=== PATIENT | female | born 1995 | race Two or more races ===

== ENCOUNTER 2018-08-19 02:03 | Inpatient (IN) | payer BC ==
[~2018-08-19 02:03] MED LIST: Citric Acid/Sodium Citrate Solution 30 ML Cup PO ONE; Metoclopramide 10 MG/2 ML SDV IVPUSH ONE; Nalbuphine 20 MG/ML 1 ML Syringe IVPUSH PRN; Oxytocin/Lactated Ringers 10 UNIT/1,000 ML BAG IV SCH; Sodium Chloride 0.9% 10 ML Syringe FLUSH PRN
[2018-08-19] MEDS ORDERED: Metoclopramide 10 MG/2 ML SDV ONE (06:33)
[2018-08-19] MEDS ORDERED: Citric Acid/Sodium Citrate Solution 30 ML Cup ONE (06:33)
[2018-08-19] MEDS: Lactated Ringers 1,000 ML IV SCH ×2 (06:52→07:14)
--- NOTE | 2018-08-19 07:09 | PCM.OPNOTE ---
- General Post-Op/Procedure Note Date of Surgery/Procedure: 08/19/18 Operative Procedure(s): Repeat low trasverse Findings: Moderate amount of adhesive disease between the rectus and the facia. Minimal adhesive disease between the uterus and bladder. Baby girl in a vertex presentation with APGARS of 8 & 9. Weight of 7 lbs 8 oz. Pre Op Diagnosis: Hx of . 39 wks gestation Post-Op Diagnosis: Same Anesthesia Technique: Spinal Primary Surgeon: Mildred Benz Secondary Surgeon: Azucena Cameron Anesthesia Provider: Elina Colbert Reason Day Care Home Provider Was Necessary: BMI of patient. Speed/safety of procedure Pathology: cord blood collected. Placenta discarded. Fluid Replacement, Intraop: 2,000 Output, Urine Amount: 150 EBL in mLs: 1,100 Complications: None Condition: Good Free Text/Narrative:: The risks, benefits, indications, potential complications, and alternatives were explained to the patient and informed consent obtained. After induction of anesthesia, the patient was placed in a supine position and then draped and prepped in the usual sterile manner. A Pfannenstiel incision was made and carried down through the subcutaneous tissue to the fascia. Fascial incision was made and extended transversely. The fascia was from the underlying rectus tissue superiorly and inferiorly. The peritoneum was identified and entered. Peritoneal incision was extended longitudinally. The utero-vesical peritoneal reflection was incised transversely and the bladder flap was bluntly freed from the lower uterine segment. A low transverse uterine incision was made sharply with a scalpel and extended bluntly in a cephalocaudad direction. A baby girl was delivered from a vertex presentation with APGARS as above. After the umbilical cord was clamped and cut cord blood was obtained for evaluation. The placenta was removed intact and appeared normal. The uterus was exteriorized and cleared of clots. The uterine outline, tubes and ovaries appeared normal. The uterine incision was closed with running locked sutures of 0 Vicryl. Hemostasis was obtained with a second imbricating layer of 0 vicryl. The uterus was then placed back into the abdomen. The infracolic gutters were cleared of blood clots. The fascia was then reapproximated with running sutures of 0 Vicryl. The sucutaneous tissue was irrigated with sterile warm normal saline, hemostasis obtained with cautery. This layer was also closed with a running 0 vicryl. The skin was reapproximated with running Subcuticular 4-0 monocryl sutures. Instrument, sponge, and needle counts were correct prior the abdominal closure and at the conclusion of the case.
[2018-08-19] MEDS ORDERED: Morphine PF 10 MG/10 ML SDV ONE (07:30)
[2018-08-19] MEDS ORDERED: ceFAZolin 1 GM Vial ONE (07:30)
[2018-08-19] MEDS ORDERED: Phenylephrine 1% 10 MG/ML SDV ONE (07:30)
[2018-08-19] MEDS ORDERED: Oxytocin 10 Units/1 ML SDV ONE (07:31)
[2018-08-19] MEDS ORDERED: Ketorolac 30 MG/ML SDV ONE (07:31)
--- NOTE | 2018-08-19 07:32 | PCM.PREANE ---
Preanesthetic Assessment - Anesthesia/Transfusion/Family Hx Anesthesia History: Prior Anesthesia Without Reaction Family History of Anesthesia Reaction: No Transfusion History: No Prior Transfusion(s) - Review of Systems General: No Symptoms Pulmonary: No Symptoms Cardiovascular: No Symptoms Gastrointestinal: No Symptoms Neurological: No Symptoms Other: Reports: None - Physical Assessment NPO Status Date: 08/18/18 NPO Status Time: 21:00 Pulse: 94 O2 Sat by Pulse Oximetry: 99 Respiratory Rate: 17 Blood Pressure: 117/73 Temperature: 36.3 C Vital Signs: Last Vital Signs Temp 36.3 C 08/19/18 05:30 Pulse 94 08/19/18 05:30 Resp 17 08/19/18 05:30 BP 117/73 08/19/18 05:30 Pulse Ox 99 08/19/18 05:30 Height: 1.52 m Weight: 80.739 kg ASA Class: 2 Mental Status: Alert & Oriented x3 Airway Class: Mallampati = 3 Dentition: Reports: Normal Dentition Thyro-Mental Finger Breadths: 3 Mouth Opening Finger Breadths: 3 ROM/Head Extension: Full Lungs: Clear to Auscultation, Normal Respiratory Effort Cardiovascular: Regular Rate, Regular Rhythm - Lab Values: Laboratory Last Values WBC 12.22 K/mm3 (3.98-10.04) H 08/19/18 05:50 RBC 3.92 M/mm3 (3.98-5.22) L 08/19/18 05:50 Hgb 11.4 gm/L (11.2-15.7) 08/19/18 05:50 Hct 34.8 % (34.1-44.9) 08/19/18 05:50 MCV 88.8 fl (79.4-94.8) 08/19/18 05:50 MCH 29.1 pg (25.6-32.2) 08/19/18 05:50 MCHC 32.8 g/dl (32.2-35.5) 08/19/18 05:50 RDW Std Deviation 41.8 fL (36.4-46.3) 08/19/18 05:50 Plt Count 243 K/mm3 (182-369) 08/19/18 05:50 MPV 11.6 fl (9.4-12.3) 08/19/18 05:50 - Allergies Allergies/Adverse Reactions: Allergies Allergy/AdvReac Type Severity Reaction Status Date / Time No Known Allergies Allergy Verified 08/19/18 00:24 - Acknowledgements Anesthesia Type Planned: Spinal Pt an Appropriate Candidate for the Planned Anesthesia: Yes Alternatives and Risks of Anesthesia Discussed w Pt/Guardian: Yes Pt/Guardian Understands and Agrees with Anesthesia Plan: Yes PreAnesthesia Questionnaire - Past Health History Medical/Surgical History: Denies Medical/Surgical History HEENT History: Reports: None Cardiovascular History: Reports: Hypertension (HTN with last pt denies with this ) Respiratory History: Reports: None Gastrointestinal History: Reports: None Genitourinary History: Reports: None 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 (Approximate): Other (See Below) (repeat , 39 weeks) Other OB/BYN History: primary Musculoskeletal History: Reports: None Neurological History: Reports: None Psychiatric History: Reports: None Endocrine/Metabolic History: Reports: None - Past Surgical History GI Surgical History: Reports: Appendectomy - SUBSTANCE USE Smoking Status *Q: Former Smoker Tobacco Use Within Last Twelve Months: No Second Hand Smoke Exposure: No Recreational Drug Use History: No - HOME MEDS Home Medications: Home Meds Aspirin [Halfprin] 81 mg PO DAILY 08/19/18 [History] Ferrous Sulfate [Iron] 325 mg PO DAILY 08/19/18 [History] Pnv No.95/Ferrous Fum/Folic AC [ Caplet] 1 each PO DAILY 08/19/18 [ History] - CURRENT (IN HOUSE) MEDS Current Meds: Current Medications Lactated Ringer's (Ringers, Lactated) 1,000 mls @ 125 mls/hr IV ASDIRECTED ALLISON Last Admin: 08/19/18 07:14 Dose: 125 mls/hr Oxytocin/Lactated Ringer's (Pitocin In Lr 10 Units/1,000 Ml) 10 unit in 1,000 mls @ 100 mls/hr IV ASDIRECTED ALLISON; Protocol Nalbuphine HCl (Nubain) 10 mg IVPUSH Q2H PRN PRN Reason: pain Sodium Chloride (Saline Flush) 10 ml FLUSH ASDIRECTED PRN PRN Reason: Keep Vein Open Discontinued Medications Citric Acid/Sodium Citrate (Bicitra Solution) 30 ml PO ONETIME ONE Stop: 08/19/18 01:51 Last Admin: 08/19/18 06:52 Dose: 30 ml Citric Acid/Sodium Citrate (Bicitra Solution) Confirm Administered Dose 30 ml .ROUTE .STK-MED ONE Stop: 08/19/18 06:34 Metoclopramide HCl (Reglan) 10 mg IVPUSH ONETIME ONE Stop: 08/19/18 01:51 Last Admin: 08/19/18 06:52 Dose: 10 mg Metoclopramide HCl (Reglan) Confirm Administered Dose 10 mg .ROUTE .STK-MED ONE Stop: 08/19/18 06:34
[2018-08-19] MEDS ORDERED: Lactated Ringers 1,000 ML ONE ×2 (08:23→08:29)
[2018-08-19] MEDS ORDERED: Ondansetron 4 MG/2 ML SDV ONE (08:25)
[2018-08-19] MEDS ORDERED: diphenhydrAMINE 50 MG/ML SDV IVPUSH PRN ×2 (08:38→10:30)
[2018-08-19] MEDS ORDERED: Meperidine 50 MG/ML Vial IVPUSH PRN (08:38)
[2018-08-19] MEDS ORDERED: ePHEDrine 50 MG/ML SDV IVPUSH PRN (08:38)
[2018-08-19] MEDS ORDERED: Ondansetron 4 MG/2 ML SDV IVPUSH PRN (08:38)
[2018-08-19] MEDS ORDERED: fentaNYL 100 MCG/2 ML SDV IVPUSH PRN (08:38)
--- NOTE | 2018-08-19 08:55 | PCM.POSTAN ---
POST ANESTHESIA ASSESSMENT - MENTAL STATUS Mental Status: Alert, Oriented - VITAL SIGNS Pulse Rate: 70 SaO2: 97 Resp Rate: 14 Blood Pressure: 106/51 Temperature: 97.6 C - RESPIRATORY Respiratory Status: Respiratory Rate WNL, Airway Patent, O2 Saturation Stable - CARDIOVASCULAR CV Status: Pulse Rate WNL, Blood Pressure Stable - GASTROINTESTINAL GI Status: No Symptoms - PAIN Pain Score: 0 - POST OP HYDRATION Hydration Status: Adequate & Stable
[2018-08-19] MEDS ORDERED: Docusate Sodium 100 MG Cap PO PRN (10:30)
[2018-08-19] MEDS ORDERED: Ondansetron 4 MG/2 ML SDV IV PRN (10:30)
[2018-08-19] MEDS ORDERED: Lanolin 100% Cream 7 GM Tube TOP PRN (10:30)
--- NOTE | 2018-08-19 10:34 | PCM48HPAN ---
Post Anesthesia Note - EVALUATION WITHIN 48HRS OF ANESTHETIC Vital Signs in Normal Range: Yes Patient Participated in Evaluation: Yes Respiratory Function Stable: Yes Airway Patent: Yes Cardiovascular Function Stable: Yes Hydration Status Stable: Yes Pain Control Satisfactory: Yes Nausea and Vomiting Control Satisfactory: Yes Mental Status Recovered: Yes
[2018-08-19] MEDS: Dextrose 5%-Lactated Ringers 1,000 ML IV SCH ×2 (12:51→18:05)
[2018-08-19] MEDS: Ketorolac 30 MG/ML SDV IVPUSH SCH ×2 (14:34→20:21)
[2018-08-19] MEDS ORDERED: Scopolamine 1.5 MG Transdermal Patch TRDERM PRN (17:07)
[2018-08-20] MEDS: Ketorolac 30 MG/ML SDV IVPUSH SCH (02:29)
--- NOTE | 2018-08-20 04:34 | PCM.PNPP ---
- General Info Date of Service: 08/20/18 Functional Status: Reports: Pain Controlled, Tolerating Diet, Ambulating - Review of Systems General: Reports: No Symptoms Pulmonary: Reports: No Symptoms Cardiovascular: Reports: No Symptoms Gastrointestinal: Reports: Abdominal Pain (managed with medications ) Genitourinary: Reports: No Symptoms Musculoskeletal: Reports: No Symptoms - Patient Data Vital Signs - Most Recent: Last Vital Signs Temp 36.7 C 08/19/18 20:30 Pulse 63 08/20/18 02:37 Resp 16 08/20/18 03:36 BP 95/42 L 08/20/18 02:37 Pulse Ox 98 08/20/18 03:36 Weight - Most Recent: 80.739 kg I&O - Last 24 Hours: Intake & Output 08/19/18 08/19/18 08/20/18 14:59 22:59 06:59 Intake Total 1820 3000 1000 Output Total 395 860 275 Balance 1425 2140 725 Lab Results - Last 24 Hours: Laboratory Results - last 24 hr 08/19/18 08/19/18 Range/Units 05:50 05:50 WBC 12.22 H (3.98-10.04) K/mm3 RBC 3.92 L (3.98-5.22) M/mm3 Hgb 11.4 (11.2-15.7) gm/L Hct 34.8 (34.1-44.9) % MCV 88.8 (79.4-94.8) fl MCH 29.1 (25.6-32.2) pg MCHC 32.8 (32.2-35.5) g/dl RDW Std Deviation 41.8 (36.4-46.3) fL Plt Count 243 (182-369) K/mm3 MPV 11.6 (9.4-12.3) fl Blood Type O POSITIVE Gel Antibody Screen Negative Med Orders - Current: Current Medications Diphenhydramine HCl (Benadryl) 25 mg IVPUSH Q6H PRN PRN Reason: pruritis Diphenhydramine HCl (Benadryl) 25 mg IVPUSH Q6H PRN PRN Reason: Itching or Nausea Docusate Sodium (Colace) 100 mg PO Q12H PRN PRN Reason: Constipation Emollient Ointment (Lansinoh Hpa) 0 gm TOP ASDIRECTED PRN PRN Reason: Sore Nipples Ephedrine Sulfate (Ephedrine Sulfate) 5 mg IVPUSH ASDIRECTED PRN PRN Reason: Hypotension Fentanyl (Sublimaze) 50 mcg IVPUSH Q5M PRN PRN Reason: Pain Ibuprofen (Motrin) 600 mg PO Q6H PRN PRN Reason: mild pain or fever Meperidine HCl (Meperidine) 12.5 mg IVPUSH ASDIRECTED PRN PRN Reason: Shivering Ondansetron HCl (Zofran) 4 mg IVPUSH ONETIME PRN PRN Reason: Nausea/Vomiting Ondansetron HCl (Zofran) 4 mg IV Q8H PRN PRN Reason: Nausea/Vomiting Last Admin: 08/19/18 13:08 Dose: 4 mg Oxycodone/Acetaminophen (Percocet 325-5 Mg) 2 tab PO Q4H PRN PRN Reason: Pain (moderate 4-6) Scopolamine (Transderm-Scop) 1.5 mg TRDERM Q72H PRN PRN Reason: Vomiting Last Admin: 08/19/18 17:41 Dose: 1.5 mg Discontinued Medications Cefazolin Sodium (Ancef) Confirm Administered Dose 2 gm .ROUTE .STK-MED ONE Stop: 08/19/18 07:31 Citric Acid/Sodium Citrate (Bicitra Solution) 30 ml PO ONETIME ONE Stop: 08/19/18 01:51 Last Admin: 08/19/18 06:52 Dose: 30 ml Citric Acid/Sodium Citrate (Bicitra Solution) Confirm Administered Dose 30 ml .ROUTE .STK-MED ONE Stop: 08/19/18 06:34 Last Admin: 08/19/18 11:01 Dose: Not Given Lactated Ringer's (Ringers, Lactated) 1,000 mls @ 125 mls/hr IV ASDIRECTED ALLISON Last Admin: 08/19/18 07:14 Dose: 125 mls/hr Oxytocin/Lactated Ringer's (Pitocin In Lr 10 Units/1,000 Ml) 10 unit in 1,000 mls @ 100 mls/hr IV ASDIRECTED ALLISON; Protocol Lidocaine HCl (Xylocaine-Mpf 1%) Confirm Administered Dose 5 mls @ as directed .ROUTE .STK-MED ONE Stop: 08/19/18 07:32 Lactated Ringer's (Ringers, Lactated) Confirm Administered Dose 1,000 mls @ as directed .ROUTE .STK-MED ONE Stop: 08/19/18 08:24 Lactated Ringer's (Ringers, Lactated) Confirm Administered Dose 1,000 mls @ as directed .ROUTE .STK-MED ONE Stop: 08/19/18 08:30 Dextrose/Lactated Ringer's (Dextrose 5%-Lactated Ringers) 1,000 mls @ 125 mls/ hr IV ASDIRECTED ALLISON Stop: 08/19/18 18:29 Last Admin: 08/19/18 18:05 Dose: 125 mls/hr Ketorolac Tromethamine (Toradol) Confirm Administered Dose 30 mg .ROUTE .STK- MED ONE Stop: 08/19/18 07:32 Ketorolac Tromethamine (Toradol) 30 mg IVPUSH Q6H [facility] Stop: 08/20/18 02:31 Last Admin: 08/20/18 02:29 Dose: 30 mg Metoclopramide HCl (Reglan) 10 mg IVPUSH ONETIME ONE Stop: 08/19/18 01:51 Last Admin: 08/19/18 06:52 Dose: 10 mg Metoclopramide HCl (Reglan) Confirm Administered Dose 10 mg .ROUTE .STK-MED ONE Stop: 08/19/18 06:34 Last Admin: 08/19/18 11:01 Dose: Not Given Morphine Sulfate (Duramorph Pf) Confirm Administered Dose 10 mg .ROUTE .STK-MED ONE Stop: 08/19/18 07:31 Nalbuphine HCl (Nubain) 10 mg IVPUSH Q2H PRN PRN Reason: pain Ondansetron HCl (Zofran) Confirm Administered Dose 4 mg .ROUTE .STK-MED ONE Stop: 08/19/18 08:26 Oxytocin (Pitocin) Confirm Administered Dose 10 unit .ROUTE .STK-MED ONE Stop: 08/19/18 07:32 Phenylephrine HCl (Jaren-Synephrine) Confirm Administered Dose 10 mg .ROUTE .STK- MED ONE Stop: 08/19/18 07:31 Sodium Chloride (Saline Flush) 10 ml FLUSH ASDIRECTED PRN PRN Reason: Keep Vein Open - Interaction Disposition, : [place] in Room with Family Interaction: Holding Feeding: Attempted ; Nursed Fair/Poor Support Person: Significant Other - Recovery Exam Fundal Tone: Firm Fundal Level: At Umbilicus Fundal Placement: Midline Lochia Amount: Small, Moderate Lochia Color: Rubra/Red Perineum Description: Intact, Minimal Bruising/Swelling Bladder Status: Indwelling Catheter in Place Urinary Elimination: Indwelling Catheter - Exam General: Alert, Oriented, Cooperative Lungs: Clear to Auscultation, Normal Respiratory Effort Cardiovascular: Regular Rate, Regular Rhythm GI/Abdominal Exam: Soft, Tender (appropriate post op) Extremities: Normal Inspection Skin: Warm, Dry, Intact Wound/Incisions: Dressing Dry and Intact (changed last night as slightly saturated ) - Problem List & Annotations (1) 39 weeks gestation of SNOMED Code(s): 05736952 Code(s): Z3A.39 - 39 WEEKS GESTATION OF Status: Acute Current Visit: Yes (2) S/P repeat low transverse SNOMED Code(s): 824260087, 67537993, 409433083, 247859847, 474706061 Code(s): Z98.891 - HISTORY OF UTERINE SCAR FROM PREVIOUS SURGERY Status: Acute Current Visit: Yes - Problem List Review Problem List Initiated/Reviewed/Updated: Yes - My Orders Last 24 Hours: My Active Orders 08/19/18 10:30 Activity as Tolerated [RC] .Routine Antiembolic Devices [RC] PER UNIT ROUTINE Communication Order [RC] PER UNIT ROUTINE Intake and Output [RC] Q4HR Notify Provider Intake and Out [RC] ASDIRECTED RT Incentive Spirometry [RC] Q2HWA Acetaminophen/oxyCODONE [Percocet 325-5 MG] 2 tab PO Q4H PRN Docusate Sodium [Colace] 100 mg PO Q12H PRN Lanolin [Lansinoh HPA] See Dose Instructions TOP ASDIRECTED PRN Ondansetron [Zofran] 4 mg IV Q8H PRN diphenhydrAMINE [Benadryl] 25 mg IVPUSH Q6H PRN Assess Lochia [WOMSER] Per Unit Routine Assess Uterine Involution [WOMSER] Per Unit Routine Breast Pump [WOMSER] Per Unit Routine Heat Therapy [OM.PC] Per Unit Routine Peripheral IV Discontinue [OM.PC] Routine Sequential Compression Device [OM.PC] Per Unit Routine 08/19/18 17:07 Scopolamine [Transderm-Scop] 1.5 mg TRDERM Q72H PRN 08/19/18 Breakfast Regular Diet [DIET] 08/20/18 05:11 CBC W/O DIFF,HEMOGRAM [HEME] AM 08/20/18 08:30 Ibuprofen [Motrin] 600 mg PO Q6H PRN 08/20/18 08:52 Urinary Catheter Removal [RC] Per Unit Routine - Assessment Assessment:: 23 y/o G2 now P2002 POD#1 from [facility] at 39 0/7 wks - Plan Plan:: * Routine cares * Encourage breast feeding * CBC today with as expected drop, continue PNV on discharge * Discharge home in 1-2 days
[2018-08-20] MEDS: Acetaminophen/oxyCODONE 325-5 MG Tab PO PRN ×3 (06:25→18:37)
[2018-08-20] MEDS: Ibuprofen 600 MG Tab PO PRN (12:06)
[2018-08-21] MEDS: Ibuprofen 600 MG Tab PO PRN (00:09)
[2018-08-21] MEDS: Acetaminophen/oxyCODONE 325-5 MG Tab PO PRN ×2 (00:10→09:44)
--- NOTE | 2018-08-21 07:16 | PCM.PNPP ---
- General Info Date of Service: 08/21/18 - Patient Data Vital Signs - Most Recent: Last Vital Signs Temp 36.8 C 08/21/18 05:07 Pulse 66 08/21/18 05:07 Resp 16 08/21/18 05:07 BP 95/54 L 08/21/18 05:07 Pulse Ox 98 08/21/18 05:07 Weight - Most Recent: 80.739 kg I&O - Last 24 Hours: Intake & Output 08/20/18 08/21/18 08/21/18 22:59 06:59 14:59 Output Total 300 1200 Balance -300 -1200 Lab Results - Last 24 Hours: Laboratory Results - last 24 hr 08/20/18 Range/Units 05:55 WBC 13.26 H (3.98-10.04) K/mm3 RBC 3.05 L (3.98-5.22) M/mm3 Hgb 8.7 L (11.2-15.7) gm/L Hct 27.8 L (34.1-44.9) % MCV 91.1 (79.4-94.8) fl MCH 28.5 (25.6-32.2) pg MCHC 31.3 L (32.2-35.5) g/dl RDW Std Deviation 41.9 (36.4-46.3) fL Plt Count 227 (182-369) K/mm3 MPV 12.3 (9.4-12.3) fl Med Orders - Current: Current Medications Diphenhydramine HCl (Benadryl) 25 mg IVPUSH Q6H PRN PRN Reason: pruritis Diphenhydramine HCl (Benadryl) 25 mg IVPUSH Q6H PRN PRN Reason: Itching or Nausea Docusate Sodium (Colace) 100 mg PO Q12H PRN PRN Reason: Constipation Emollient Ointment (Lansinoh Hpa) 0 gm TOP ASDIRECTED PRN PRN Reason: Sore Nipples Ephedrine Sulfate (Ephedrine Sulfate) 5 mg IVPUSH ASDIRECTED PRN PRN Reason: Hypotension Fentanyl (Sublimaze) 50 mcg IVPUSH Q5M PRN PRN Reason: Pain Ibuprofen (Motrin) 600 mg PO Q6H PRN PRN Reason: mild pain or fever Last Admin: 08/21/18 00:09 Dose: 600 mg Meperidine HCl (Meperidine) 12.5 mg IVPUSH ASDIRECTED PRN PRN Reason: Shivering Ondansetron HCl (Zofran) 4 mg IVPUSH ONETIME PRN PRN Reason: Nausea/Vomiting Ondansetron HCl (Zofran) 4 mg IV Q8H PRN PRN Reason: Nausea/Vomiting Last Admin: 08/19/18 13:08 Dose: 4 mg Oxycodone/Acetaminophen (Percocet 325-5 Mg) 2 tab PO Q4H PRN PRN Reason: Pain (moderate 4-6) Last Admin: 08/21/18 00:10 Dose: 2 tab Scopolamine (Transderm-Scop) 1.5 mg TRDERM Q72H PRN PRN Reason: Vomiting Last Admin: 08/19/18 17:41 Dose: 1.5 mg Discontinued Medications Cefazolin Sodium (Ancef) Confirm Administered Dose 2 gm .ROUTE .ST-MED ONE Stop: 08/19/18 07:31 Citric Acid/Sodium Citrate (Bicitra Solution) 30 ml PO ONETIME ONE Stop: 08/19/18 01:51 Last Admin: 08/19/18 06:52 Dose: 30 ml Citric Acid/Sodium Citrate (Bicitra Solution) Confirm Administered Dose 30 ml .ROUTE .STK-MED ONE Stop: 08/19/18 06:34 Last Admin: 08/19/18 11:01 Dose: Not Given Lactated Ringer's (Ringers, Lactated) 1,000 mls @ 125 mls/hr IV ASDIRECTED ALLISON Last Admin: 08/19/18 07:14 Dose: 125 mls/hr Oxytocin/Lactated Ringer's (Pitocin In Lr 10 Units/1,000 Ml) 10 unit in 1,000 mls @ 100 mls/hr IV ASDIRECTED ALLISON; Protocol Lidocaine HCl (Xylocaine-Mpf 1%) Confirm Administered Dose 5 mls @ as directed .ROUTE .STK-MED ONE Stop: 08/19/18 07:32 Lactated Ringer's (Ringers, Lactated) Confirm Administered Dose 1,000 mls @ as directed .ROUTE .STK-MED ONE Stop: 08/19/18 08:24 Lactated Ringer's (Ringers, Lactated) Confirm Administered Dose 1,000 mls @ as directed .ROUTE .STK-MED ONE Stop: 08/19/18 08:30 Dextrose/Lactated Ringer's (Dextrose 5%-Lactated Ringers) 1,000 mls @ 125 mls/ hr IV ASDIRECTED ALLISON Stop: 08/19/18 18:29 Last Admin: 08/19/18 18:05 Dose: 125 mls/hr Ketorolac Tromethamine (Toradol) Confirm Administered Dose 30 mg .ROUTE .STK- MED ONE Stop: 08/19/18 07:32 Ketorolac Tromethamine (Toradol) 30 mg IVPUSH Q6H [facility] Stop: 08/20/18 02:31 Last Admin: 08/20/18 02:29 Dose: 30 mg Metoclopramide HCl (Reglan) 10 mg IVPUSH ONETIME ONE Stop: 08/19/18 01:51 Last Admin: 08/19/18 06:52 Dose: 10 mg Metoclopramide HCl (Reglan) Confirm Administered Dose 10 mg .ROUTE .STK-MED ONE Stop: 08/19/18 06:34 Last Admin: 08/19/18 11:01 Dose: Not Given Morphine Sulfate (Duramorph Pf) Confirm Administered Dose 10 mg .ROUTE .STK-MED ONE Stop: 08/19/18 07:31 Nalbuphine HCl (Nubain) 10 mg IVPUSH Q2H PRN PRN Reason: pain Ondansetron HCl (Zofran) Confirm Administered Dose 4 mg .ROUTE .STK-MED ONE Stop: 08/19/18 08:26 Oxytocin (Pitocin) Confirm Administered Dose 10 unit .ROUTE .STK-MED ONE Stop: 08/19/18 07:32 Phenylephrine HCl (Jaren-Synephrine) Confirm Administered Dose 10 mg .ROUTE .STK- MED ONE Stop: 08/19/18 07:31 Sodium Chloride (Saline Flush) 10 ml FLUSH ASDIRECTED PRN PRN Reason: Keep Vein Open - Interaction Disposition, : in Room with Family Infant Interaction: Holding Infant Infant Feeding: Attempted ; Nursed Fair/Poor Support Person: Significant Other - Recovery Exam Fundal Tone: Firm Fundal Level: 1 Fingerbreadths Below Umbilicus Fundal Placement: Midline Lochia Amount: Small Lochia Color: Rubra/Red Perineum Description: Intact, Minimal Bruising/Swelling Bladder Status: Indwelling Catheter in Place Urinary Elimination: Indwelling Catheter - Problem List & Annotations (1) 39 weeks gestation of SNOMED Code(s): 68692931 Code(s): Z3A.39 - 39 WEEKS GESTATION OF Status: Acute Current Visit: Yes (2) S/P repeat low transverse SNOMED Code(s): 836689267, 60066569, 229059604, 520799165, 524239146 Code(s): Z98.891 - HISTORY OF UTERINE SCAR FROM PREVIOUS SURGERY Status: Acute Current Visit: Yes - My Orders Last 24 Hours: My Active Orders 08/20/18 08:30 Ibuprofen [Motrin] 600 mg PO Q6H PRN 08/20/18 13:00 Insert Urinary Catheter [OM.PC] Q24H - Assessment Assessment:: 23 y/o G2 now P2002 POD#1 from [facility] at 39 0/7 wks - Plan Plan:: * Routine cares * Encourage breast feeding * CBC today with as expected drop, continue PNV on discharge * Discharge home in 1-2 days
--- NOTE | 2018-08-21 07:59 | PCM.PNPP ---
- General Info Date of Service: 08/21/18 Functional Status: Reports: Pain Controlled, Tolerating Diet, Ambulating, Urinating - Review of Systems General: Reports: No Symptoms Pulmonary: Reports: No Symptoms Cardiovascular: Reports: No Symptoms Gastrointestinal: Reports: No Symptoms Genitourinary: Reports: No Symptoms (Finally able to pee this AM) Musculoskeletal: Reports: No Symptoms Neurological: Reports: No Symptoms - Patient Data Vital Signs - Most Recent: Last Vital Signs Temp 36.8 C 08/21/18 05:07 Pulse 66 08/21/18 05:07 Resp 16 08/21/18 05:07 BP 95/54 L 08/21/18 05:07 Pulse Ox 98 08/21/18 05:07 Weight - Most Recent: 80.739 kg I&O - Last 24 Hours: Intake & Output 08/20/18 08/21/18 08/21/18 22:59 06:59 14:59 Output Total 300 1200 Balance -300 -1200 Med Orders - Current: Current Medications Diphenhydramine HCl (Benadryl) 25 mg IVPUSH Q6H PRN PRN Reason: pruritis Diphenhydramine HCl (Benadryl) 25 mg IVPUSH Q6H PRN PRN Reason: Itching or Nausea Docusate Sodium (Colace) 100 mg PO Q12H PRN PRN Reason: Constipation Emollient Ointment (Lansinoh Hpa) 0 gm TOP ASDIRECTED PRN PRN Reason: Sore Nipples Ephedrine Sulfate (Ephedrine Sulfate) 5 mg IVPUSH ASDIRECTED PRN PRN Reason: Hypotension Fentanyl (Sublimaze) 50 mcg IVPUSH Q5M PRN PRN Reason: Pain Ibuprofen (Motrin) 600 mg PO Q6H PRN PRN Reason: mild pain or fever Last Admin: 08/21/18 00:09 Dose: 600 mg Meperidine HCl (Meperidine) 12.5 mg IVPUSH ASDIRECTED PRN PRN Reason: Shivering Ondansetron HCl (Zofran) 4 mg IVPUSH ONETIME PRN PRN Reason: Nausea/Vomiting Ondansetron HCl (Zofran) 4 mg IV Q8H PRN PRN Reason: Nausea/Vomiting Last Admin: 08/19/18 13:08 Dose: 4 mg Oxycodone/Acetaminophen (Percocet 325-5 Mg) 2 tab PO Q4H PRN PRN Reason: Pain (moderate 4-6) Last Admin: 08/21/18 00:10 Dose: 2 tab Scopolamine (Transderm-Scop) 1.5 mg TRDERM Q72H PRN PRN Reason: Vomiting Last Admin: 08/19/18 17:41 Dose: 1.5 mg Discontinued Medications Cefazolin Sodium (Ancef) Confirm Administered Dose 2 gm .ROUTE .STK-MED ONE Stop: 08/19/18 07:31 Citric Acid/Sodium Citrate (Bicitra Solution) 30 ml PO ONETIME ONE Stop: 08/19/18 01:51 Last Admin: 08/19/18 06:52 Dose: 30 ml Citric Acid/Sodium Citrate (Bicitra Solution) Confirm Administered Dose 30 ml .ROUTE .STK-MED ONE Stop: 08/19/18 06:34 Last Admin: 08/19/18 11:01 Dose: Not Given Lactated Ringer's (Ringers, Lactated) 1,000 mls @ 125 mls/hr IV ASDIRECTED [facility] Last Admin: 08/19/18 07:14 Dose: 125 mls/hr Oxytocin/Lactated Ringer's (Pitocin In Lr 10 Units/1,000 Ml) 10 unit in 1,000 mls @ 100 mls/hr IV ASDIRECTED [facility]; Protocol Lidocaine HCl (Xylocaine-Mpf 1%) Confirm Administered Dose 5 mls @ as directed .ROUTE .STK-MED ONE Stop: 08/19/18 07:32 Lactated Ringer's (Ringers, Lactated) Confirm Administered Dose 1,000 mls @ as directed .ROUTE .STK-MED ONE Stop: 08/19/18 08:24 Lactated Ringer's (Ringers, Lactated) Confirm Administered Dose 1,000 mls @ as directed .ROUTE .STK-MED ONE Stop: 08/19/18 08:30 Dextrose/Lactated Ringer's (Dextrose 5%-Lactated Ringers) 1,000 mls @ 125 mls/ hr IV ASDIRECTED [facility] Stop: 08/19/18 18:29 Last Admin: 08/19/18 18:05 Dose: 125 mls/hr Ketorolac Tromethamine (Toradol) Confirm Administered Dose 30 mg .ROUTE .STK- MED ONE Stop: 08/19/18 07:32 Ketorolac Tromethamine (Toradol) 30 mg IVPUSH Q6H [facility] Stop: 08/20/18 02:31 Last Admin: 08/20/18 02:29 Dose: 30 mg Metoclopramide HCl (Reglan) 10 mg IVPUSH ONETIME ONE Stop: 08/19/18 01:51 Last Admin: 08/19/18 06:52 Dose: 10 mg Metoclopramide HCl (Reglan) Confirm Administered Dose 10 mg .ROUTE .STK-MED ONE Stop: 08/19/18 06:34 Last Admin: 08/19/18 11:01 Dose: Not Given Morphine Sulfate (Duramorph Pf) Confirm Administered Dose 10 mg .ROUTE .STK-MED ONE Stop: 08/19/18 07:31 Nalbuphine HCl (Nubain) 10 mg IVPUSH Q2H PRN PRN Reason: pain Ondansetron HCl (Zofran) Confirm Administered Dose 4 mg .ROUTE .STK-MED ONE Stop: 08/19/18 08:26 Oxytocin (Pitocin) Confirm Administered Dose 10 unit .ROUTE .STK-MED ONE Stop: 08/19/18 07:32 Phenylephrine HCl (Jaren-Synephrine) Confirm Administered Dose 10 mg .ROUTE .STK- MED ONE Stop: 08/19/18 07:31 Sodium Chloride (Saline Flush) 10 ml FLUSH ASDIRECTED PRN PRN Reason: Keep Vein Open - Infant Interaction Disposition, : [place] in Room with Family Interaction: Holding Infant Feeding: Attempted ; Nursed Fair/Poor Support Person: Significant Other - Recovery Exam Fundal Tone: Firm Fundal Level: 1 Fingerbreadths Below Umbilicus Fundal Placement: Midline Lochia Amount: Small Lochia Color: Rubra/Red Perineum Description: Intact, Minimal Bruising/Swelling Bladder Status: Indwelling Catheter in Place Urinary Elimination: Indwelling Catheter - Exam General: Alert, Oriented, Cooperative Lungs: Clear to Auscultation, Normal Respiratory Effort Cardiovascular: Regular Rate, Regular Rhythm GI/Abdominal Exam: Soft, Tender (appropriate ) Extremities: Normal Inspection Skin: Warm, Dry, Intact Wound/Incisions: Healing Well, No Drainage, Other (bruising ) - Problem List & Annotations (1) 39 weeks gestation of SNOMED Code(s): 54831269 Code(s): Z3A.39 - 39 WEEKS GESTATION OF Status: Acute Current Visit: Yes (2) S/P repeat low transverse SNOMED Code(s): 908624861, 66456312, 865406921, 147547005, 639691524 Code(s): Z98.891 - HISTORY OF UTERINE SCAR FROM PREVIOUS SURGERY Status: Acute Current Visit: Yes - Problem List Review Problem List Initiated/Reviewed/Updated: Yes - My Orders Last 24 Hours: My Active Orders 08/20/18 08:30 Ibuprofen [Motrin] 600 mg PO Q6H PRN 08/20/18 13:00 Insert Urinary Catheter [OM.PC] Q24H - Assessment Assessment:: 23 y/o G2 now P2002 POD#2 from RLTCS at 39 0/7 wks - Plan Plan:: * Routine cares * Encourage breast feeding * Catheter had to be replaced yesterday as not able to void. Taken out this AM and now has voided. * Discharge home today if peds ok's baby discharge
--- NOTE | 2018-08-21 09:29 | PCM.DCSUM1 ---
Discharge Summary - Discharge Data Discharge Date: 08/21/18 Discharge Disposition: Home, Self-Care 01 Condition: Good - Discharge Diagnosis/Problem(s) (1) 39 weeks gestation of SNOMED Code(s): 55661632 ICD Code: Z3A.39 - 39 WEEKS GESTATION OF Status: Acute Current Visit: Yes (2) S/P repeat low transverse SNOMED Code(s): 435559872, 12711935, 989969674, 134041650, 752409441 ICD Code: Z98.891 - HISTORY OF UTERINE SCAR FROM PREVIOUS SURGERY Status: Acute Current Visit: Yes - Patient Summary/Data Operative Procedure(s) Performed: Repeat low trasverse Complications: None Consults: None Recommended Follow-up Testing/Procedures: Follow up in 1-2 weeks for incision check Hospital Course: 23 y/o at 39 0/7 wks who presented for planned RLTCS. Procedure was uncomplicated. See operative note for full details. she did well and was discharged home on POD#2 - Patient Instructions Diet: Regular Diet as Tolerated Activity: No Lifting Over 10 Pounds Driving: Do Not Drive (While taking narcotics ) Showering/Bathing: May Shower, No Tub Bathing/Swimming Wound/Incision Care: Keep Operative Site/Wound Site Clean and Dry Notify Provider of: Fever, Increased Pain, Swelling and Redness, Drainage, Nausea and/or Vomiting - Discharge Plan *PRESCRIPTION DRUG MONITORING PROGRAM REVIEWED*: Not Applicable (No matching patient in system) *COPY OF PRESCRIPTION DRUG MONITORING REPORT IN PATIENT TOM: Not Applicable ( No record) Prescriptions/Med Rec: Acetaminophen/oxyCODONE [Percocet 325-5 MG] 1 - 2 tab PO Q4H PRN #25 tablet PRN Reason: Pain (Moderate 4-6) Home Medications: Home Meds Ferrous Sulfate [Iron] 325 mg PO DAILY 08/19/18 [History] Pnv No.95/Ferrous Fum/Folic AC [ Caplet] 1 each PO DAILY 08/19/18 [ History] Acetaminophen/oxyCODONE [Percocet 325-5 MG] 1 - 2 tab PO Q4H PRN #25 tablet [Rx] Docusate Sodium [Colace] 100 mg PO Q12H PRN cap 08/21/18 [Rx] Ibuprofen [Motrin] 600 mg PO Q6H PRN tablet 08/21/18 [Rx] Patient Handouts: Delivery, Care After, Home Care Instructions for Mom Referrals: Mildred Benz MD [Physician] - (1-2 weeks for post op check ) - Discharge Summary/Plan Comment DC Time >30 min.: No - Patient Data Vitals - Most Recent: Last Vital Signs Temp 36.8 C 08/21/18 05:07 Pulse 66 08/21/18 05:07 Resp 16 08/21/18 05:07 BP 95/54 L 08/21/18 05:07 Pulse Ox 98 08/21/18 05:07 Weight - Most Recent: 80.739 kg I&O - Last 24 hours: Intake & Output 08/20/18 08/21/18 08/21/18 22:59 06:59 14:59 Output Total 300 1200 Balance -300 -1200 Med Orders - Current: Current Medications Diphenhydramine HCl (Benadryl) 25 mg IVPUSH Q6H PRN PRN Reason: pruritis Diphenhydramine HCl (Benadryl) 25 mg IVPUSH Q6H PRN PRN Reason: Itching or Nausea Docusate Sodium (Colace) 100 mg PO Q12H PRN PRN Reason: Constipation Emollient Ointment (Lansinoh Hpa) 0 gm TOP ASDIRECTED PRN PRN Reason: Sore Nipples Ephedrine Sulfate (Ephedrine Sulfate) 5 mg IVPUSH ASDIRECTED PRN PRN Reason: Hypotension Fentanyl (Sublimaze) 50 mcg IVPUSH Q5M PRN PRN Reason: Pain Ibuprofen (Motrin) 600 mg PO Q6H PRN PRN Reason: mild pain or fever Last Admin: 08/21/18 00:09 Dose: 600 mg Meperidine HCl (Meperidine) 12.5 mg IVPUSH ASDIRECTED PRN PRN Reason: Shivering Ondansetron HCl (Zofran) 4 mg IVPUSH ONETIME PRN PRN Reason: Nausea/Vomiting Ondansetron HCl (Zofran) 4 mg IV Q8H PRN PRN Reason: Nausea/Vomiting Last Admin: 08/19/18 13:08 Dose: 4 mg Oxycodone/Acetaminophen (Percocet 325-5 Mg) 2 tab PO Q4H PRN PRN Reason: Pain (moderate 4-6) Last Admin: 08/21/18 00:10 Dose: 2 tab Scopolamine (Transderm-Scop) 1.5 mg TRDERM Q72H PRN PRN Reason: Vomiting Last Admin: 08/19/18 17:41 Dose: 1.5 mg Discontinued Medications Cefazolin Sodium (Ancef) Confirm Administered Dose 2 gm .ROUTE .STK-MED ONE Stop: 08/19/18 07:31 Citric Acid/Sodium Citrate (Bicitra Solution) 30 ml PO ONETIME ONE Stop: 08/19/18 01:51 Last Admin: 08/19/18 06:52 Dose: 30 ml Citric Acid/Sodium Citrate (Bicitra Solution) Confirm Administered Dose 30 ml .ROUTE .STK-MED ONE Stop: 08/19/18 06:34 Last Admin: 08/19/18 11:01 Dose: Not Given Lactated Ringer's (Ringers, Lactated) 1,000 mls @ 125 mls/hr IV ASDIRECTED [facility] Last Admin: 08/19/18 07:14 Dose: 125 mls/hr Oxytocin/Lactated Ringer's (Pitocin In Lr 10 Units/1,000 Ml) 10 unit in 1,000 mls @ 100 mls/hr IV ASDIRECTED [facility]; Protocol Lidocaine HCl (Xylocaine-Mpf 1%) Confirm Administered Dose 5 mls @ as directed .ROUTE .STK-MED ONE Stop: 08/19/18 07:32 Lactated Ringer's (Ringers, Lactated) Confirm Administered Dose 1,000 mls @ as directed .ROUTE .STK-MED ONE Stop: 08/19/18 08:24 Lactated Ringer's (Ringers, Lactated) Confirm Administered Dose 1,000 mls @ as directed .ROUTE .STK-MED ONE Stop: 08/19/18 08:30 Dextrose/Lactated Ringer's (Dextrose 5%-Lactated Ringers) 1,000 mls @ 125 mls/ hr IV ASDIRECTED [facility] Stop: 08/19/18 18:29 Last Admin: 08/19/18 18:05 Dose: 125 mls/hr Ketorolac Tromethamine (Toradol) Confirm Administered Dose 30 mg .ROUTE .STK- MED ONE Stop: 08/19/18 07:32 Ketorolac Tromethamine (Toradol) 30 mg IVPUSH Q6H [facility] Stop: 08/20/18 02:31 Last Admin: 08/20/18 02:29 Dose: 30 mg Metoclopramide HCl (Reglan) 10 mg IVPUSH ONETIME ONE Stop: 08/19/18 01:51 Last Admin: 08/19/18 06:52 Dose: 10 mg Metoclopramide HCl (Reglan) Confirm Administered Dose 10 mg .ROUTE .STK-MED ONE Stop: 08/19/18 06:34 Last Admin: 08/19/18 11:01 Dose: Not Given Morphine Sulfate (Duramorph Pf) Confirm Administered Dose 10 mg .ROUTE .STK-MED ONE Stop: 08/19/18 07:31 Nalbuphine HCl (Nubain) 10 mg IVPUSH Q2H PRN PRN Reason: pain Ondansetron HCl (Zofran) Confirm Administered Dose 4 mg .ROUTE .STK-MED ONE Stop: 08/19/18 08:26 Oxytocin (Pitocin) Confirm Administered Dose 10 unit .ROUTE .STK-MED ONE Stop: 08/19/18 07:32 Phenylephrine HCl (Jaren-Synephrine) Confirm Administered Dose 10 mg .ROUTE .STK- MED ONE Stop: 08/19/18 07:31 Sodium Chloride (Saline Flush) 10 ml FLUSH ASDIRECTED PRN PRN Reason: Keep Vein Open
== END 2018-08-21 13:59 | disposition home or self-care (01) | DRG 540 ==
LOC: JD.OB 04:55
PROVIDERS: ADMIT Obstetrics & Gynecology; ATTEND Obstetrics & Gynecology
PROC: 10D00Z1 Extraction of Products of Conception, Low, Open Approach (ICD-10-PCS; principal; 2018-08-19)
PROC: 6A550ZT Pheresis of Cord Blood Stem Cells, Single (ICD-10-PCS; principal; 2018-08-19)
DX: O34.211 Maternal care for low transverse scar from previous cesarean delivery (principal); N85.8 Other specified noninflammatory disorders of uterus; Z3A.39 39 weeks gestation of pregnancy; Z37.0 Single live birth; O99.824 Streptococcus B carrier state complicating childbirth; Z87.891 Personal history of nicotine dependence; Z79.82 Long term (current) use of aspirin
CPT/HCPCS: 01961; 36415; 51702; 59025; 85027; 86850; 86900; 86901; 94762; A9270-GY; J0690; J1885; J2001; J2270; J2370; J2405; J2590; J2765; J7042; J7120

== ENCOUNTER 2019-11-12 17:42 | Emergency (ER) | payer BC, MEDICAID ==
[2019-11-12] MEDS ORDERED: Fluorescein 1 MG Ophth Strip EYELF ONE (18:18)
--- NOTE | 2019-11-12 18:29 | EDM.PDOC ---
ED HPI GENERAL MEDICAL PROBLEM - General Chief Complaint: Eye Problems Stated Complaint: L EYE SWELLING/PAIN Time Seen by Provider: 11/12/19 17:54 Source of Information: Reports: Patient History Limitations: Reports: No Limitations - History of Present Illness INITIAL COMMENTS - FREE TEXT/NARRATIVE: The patient presents with left eye pain. [place] and it is windy a nd something blew into her eye. She has some pain and irritation. She has some blurry vision. Onset: Sudden Duration: Minutes: Location: Reports: Other (Left eye) Quality: Reports: Ache Severity: Moderate Improves with: Reports: None Worsens with: Reports: None Associated Symptoms: Reports: No Other Symptoms Left Eye Pain Score (Numeric/FACES): 3 - Related Data Allergies Allergy/AdvReac Type Severity Reaction Status Date / Time No Known Allergies Allergy Verified 11/12/19 17:52 Home Meds: Home Meds Ciprofloxacin [Ciprofloxacin 0.3% Ophth Soln] 1 drop EYERT Q4HR #1 bottle 11/12/19 [Rx] Past Medical History - Past Health History Medical/Surgical History: Denies Medical/Surgical History HEENT History: Reports: None Cardiovascular History: Reports: Hypertension Respiratory History: Reports: None Gastrointestinal History: Reports: None Genitourinary History: Reports: None 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 Musculoskeletal History: Reports: None Neurological History: Reports: None Psychiatric History: Reports: None Endocrine/Metabolic History: Reports: None - Past Surgical History GI Surgical History: Reports: Appendectomy Social & Family History - Family History Family Medical History: Noncontributory - Tobacco Use Smoking Status *Q: Never Smoker Second Hand Smoke Exposure: No - Caffeine Use Caffeine Use: Reports: None - Recreational Drug Use Recreational Drug Use: No ED ROS GENERAL - Review of Systems Review Of Systems: See Below Constitutional: Reports: No Symptoms HEENT: Reports: Eye Pain Respiratory: Reports: No Symptoms Cardiovascular: Reports: No Symptoms Endocrine: Reports: No Symptoms GI/Abdominal: Reports: No Symptoms ED EXAM GENERAL W FULL EYE - Physical Exam Exam: See Below Exam Limited By: No Limitations General Appearance: Alert, No Apparent Distress Eye Exam: Left Eye: Conjunctival Injection, Corneal Abrasion, Bilateral Eye: EOMI, PERRL Eyelids: Left: Lid Everted for Exam, Bilateral: Normal Appearance Conjunctiva & Sclera: Left: Injected Cornea Exam: Left: Corneal Abrasion Extraocular Movements: Bilateral: Intact Course - Vital Signs Last Recorded V/S: Last Vital Signs Temp 97.4 F 11/12/19 17:49 Pulse 87 11/12/19 17:49 Resp 16 11/12/19 17:49 BP 122/65 11/12/19 17:49 Pulse Ox 97 11/12/19 17:49 - Orders/Labs/Meds Meds: Medications Discontinued Medications Generic Name Dose Route Start Last Admin Trade Name Pauly PRN Reason Stop Dose Admin Fluorescein Sodium 1 mg 11/12/19 18:18 Ful-Rina EYELF 11/12/19 18:19 ONETIME ONE - Re-Assessments/Exams Free Text/Narrative Re-Assessment/Exam: 11/12/19 18:28 I looked at her eye with the slit lamp and there is an abrasion. I will get her on some cipro drops. Departure - Departure Time of Disposition: 18:30 Disposition: Home, Self-Care 01 Condition: Good Clinical Impression: Corneal abrasion Qualifiers: Encounter type: initial encounter Laterality: left Qualified Code(s): S05.02XA - Injury of conjunctiva and corneal abrasion without foreign body, left eye, initial encounter - Discharge Information *PRESCRIPTION DRUG MONITORING PROGRAM REVIEWED*: Not Applicable *COPY OF PRESCRIPTION DRUG MONITORING REPORT IN PATIENT TOM: Not Applicable Prescriptions: Ciprofloxacin [Ciprofloxacin 0.3% Oph Soln] 1 drop EYERT Q4HR #1 bottle Referrals: PCP,None [Primary Care Provider] - Additional Instructions: Take tylenol or motrin for any pain. Use the cipro drops 1 drop in the left eye every 4 hours while awake. Please return if you are worse. Sepsis Event Note (ED) - Evaluation Sepsis Screening Result: No Definite Risk - Focused Exam Vital Signs: Vital Signs Temp Pulse Resp BP Pulse Ox 11/12/19 17:49 97.4 F 87 16 122/65 97
== END 2019-11-12 18:46 | disposition home or self-care (01) ==
LOC: JD.ED 17:42
DX: S05.02XA Injury of conjunctiva and corneal abrasion without foreign body, left eye, initial encounter (principal); I10 Essential (primary) hypertension; X58.XXXA Exposure to other specified factors, initial encounter
CPT/HCPCS: 99283

== ENCOUNTER 2022-02-15 20:50 | Emergency (ER) | payer MEDICAID ==
[2022-02-15] MEDS ORDERED: Albuterol/Ipratropium 3.0-0.5 MG/3 ML Neb Soln NEB ONE (21:45)
[2022-02-15 21:48] LABS: CORONAVIRUS COVID-19 NAA NEGATIVE (NEGATIVE)
[2022-02-15] MEDS ORDERED: Albuterol 6.7 GM Inhaler INH ONE (22:08)
== END 2022-02-15 22:45 | disposition home or self-care (01) ==
LOC: JD.ED 20:50
DX: R06.02 Shortness of breath (principal); R06.2 Wheezing; I10 Essential (primary) hypertension; Z20.822 Contact with and (suspected) exposure to COVID-19; Z90.49 Acquired absence of other specified parts of digestive tract
CPT/HCPCS: 0241U; 71045; 94640; 99285; A9270; 99284; J7620-GY

== ENCOUNTER 2024-06-04 17:43 | Emergency (ER) | payer MEDICAID ==
[2024-06-04] MEDS ORDERED: Sodium Chloride 0.9% 10 ML Syringe FLUSH PRN (18:08)
[2024-06-04 18:21] LABS: BASOPHILS PERCENT AUTO 0.1 % (0.0-1.0); EOSINOPHILS ABSOLUTE AUTO 0.3 K/mm3 (0.0-0.4); HEMATOCRIT 38.7 % (37.0-47.0); HEMOGLOBIN 12.5 gm/dl (12.0-16.0); IMMATURE GRAN ABSOLUTE AUTO 0.04 K/mm3 (0.00-0.05); IMMATURE GRAN PERCENT AUTO 0.5 % (0.0-0.4); LYMPHOCYTES ABSOLUTE AUTO 2.1 K/mm3 (1.0-4.8); LYMPHOCYTES PERCENT AUTO 24.1 % (24.0-44.0); MEAN CORPUSCULAR HEMOGLOBIN 28.7 pg (28.0-32.0); MEAN CORPUSCULAR HGB CONC 32.3 g/dl (32.0-36.0); MEAN PLATELET VOLUME 10.6 fl (9.4-12.3); MONOCYTES ABSOLUTE AUTO 0.8 K/mm3 (0.0-0.8); NEUTROPHILS ABSOLUTE AUTO 5.5 K/mm3 (1.8-7.7); NEUTROPHILS PERCENT AUTO 63.3 % (41.0-71.0); PLATELET COUNT,PLT 263 K/mm3 (150-400); RED BLOOD CELL COUNT 4.35 M/mm3 (4.10-5.30); WHITE BLOOD CELL COUNT,WBC 8.71 K/mm3 (3.9-11.3)
[2024-06-04 18:46] LABS: APPEARANCE,URINE CLEAR (Clear); BILIRUBIN,URINE NEGATIVE (Negative); COLOR,URINE YELLOW (Yellow); GLUCOSE,URINE NEGATIVE (Negative); KETONES,URINE NEGATIVE (Negative); LEUKOCYTE ESTERASE,URINE NEGATIVE (Negative); NITRITE,URINE NEGATIVE (Negative); OCCULT BLOOD,URINE NEGATIVE (Negative); PH,URINE 8.5 (5.0-8.0); PROTEIN,URINE NEGATIVE (Negative); UROBILINOGEN,URINE 0.2 (0.2-1.0)
[2024-06-04 18:54] LABS: ALANINE AMINOTRANSFERASE,ALT 48 U/L (14-59); ALBUMIN 3.7 g/dl (3.4-5.0); ALKALINE PHOSPHATASE 62 U/L (46-116); ANION GAP 16.5 (5-15); ASPARTATE AMNIOTRANSFERASE,AST 31 U/L (15-37); BILIRUBIN TOTAL 0.3 mg/dL (0.2-1.0); BLOOD UREA NITROGEN,BUN 7 mg/dL (7-18); BUN/CREATININE RATIO 8.8 (14-18); CALCIUM 8.6 mg/dL (8.5-10.1); CARBON DIOXIDE,CO2 26 mEq/L (21-32); CHLORIDE,CL 101 mEq/L (98-107); CREATININE 0.8 mg/dL (0.55-1.02); EST CRCL DRUG DOSING (CG) 87.99 mL/min; ESTIMATED GFR 101 mL/min (>60); GLUCOSE RANDOM 125 mg/dL (70-99); MAGNESIUM 1.8 mg/dL (1.8-2.4); POTASSIUM,K 3.5 mEq/L (3.5-5.1); PROTEIN TOTAL,TP 7.4 g/dl (6.4-8.2); SODIUM,NA 140 mEq/L (136-145); TSH 2.735 uIU/mL (0.358-3.74)
[2024-06-04 18:56] LABS: TROPONIN I HIGH SENSITIVITY < 4 pg/mL (<=51)
== END 2024-06-04 19:27 | disposition home or self-care (01) ==
LOC: JD.ED 17:43
DX: R07.89 Other chest pain (principal); I10 Essential (primary) hypertension; Z86.16 Personal history of COVID-19; Z90.49 Acquired absence of other specified parts of digestive tract; Z87.891 Personal history of nicotine dependence
CPT/HCPCS: 36415; 80053; 81003; 83735; 84443; 84484; 85025; 93005; 99285

== ENCOUNTER 2024-07-17 11:44 | Emergency (ER) | payer MEDICAID | END 2024-07-17 12:50 | disposition home or self-care (01) | LOC: JD.ED 11:44 | DX: K04.7 Periapical abscess without sinus (principal); I10 Essential (primary) hypertension; Z86.16 Personal history of COVID-19; Z90.49 Acquired absence of other specified parts of digestive tract; Z79.899 Other long term (current) drug therapy | CPT/HCPCS: 99282 ==

== ENCOUNTER 2025-01-16 17:59 | Inpatient (IN) | payer MEDICAID ==
[2025-01-16] MEDS ORDERED: Sodium Chloride 0.9% 10 ML Syringe FLUSH PRN ×2 (19:06→23:00)
[2025-01-16 19:27] LABS: MEAN PLATELET VOLUME 11.5 fl (9.4-12.3); NRBC ABSOLUTE 0.00 (0.00-0.02); NRBC PERCENT 0.0 % (0.0-0.2); PLATELET COUNT,PLT 277 K/mm3 (150-400); RED BLOOD CELL COUNT 4.33 M/mm3 (4.10-5.30); WHITE BLOOD CELL COUNT,WBC 13.22 K/mm3 (3.9-11.3)
[2025-01-16] MEDS: Lactated Ringers 1,000 ML IV SCH (19:37)
[2025-01-16] MEDS: Citric Acid/Sodium Citrate Solution 30 ML Cup PO ONE (19:37)
[2025-01-16] MEDS ORDERED: Morphine PF 10 MG/10 ML SDV ONE (19:56)
[2025-01-16] MEDS ORDERED: Ketorolac 30 MG/ML SDV ONE (19:57)
[2025-01-16] MEDS ORDERED: Oxytocin/0.9 % Sodium Chloride 30 UNIT/500 ML BAG IV SCH (20:15)
[2025-01-16] MEDS ORDERED: Lactated Ringers 1,000 ML ONE ×2 (20:27→21:08)
[2025-01-16] MEDS ORDERED: ePHEDrine 50 MG/ML SDV ONE (20:28)
[2025-01-16] MEDS ORDERED: Oxytocin 10 Units/1 ML SDV ONE (20:44)
[2025-01-16] MEDS ORDERED: fentaNYL 100 MCG/2 ML SDV IVPUSH PRN (21:27)
[2025-01-16 21:45] LABS: MEAN PLATELET VOLUME 11.7 fl (9.4-12.3); NRBC ABSOLUTE 0.00 (0.00-0.02); NRBC PERCENT 0.0 % (0.0-0.2); PLATELET COUNT,PLT 217 K/mm3 (150-400); RED BLOOD CELL COUNT 3.58 M/mm3 (4.10-5.30); WHITE BLOOD CELL COUNT,WBC 13.72 K/mm3 (3.9-11.3)
[2025-01-16 22:03] LABS: INR 0.94
[2025-01-16 22:04] LABS: PTT,PARTIAL THROMBOPLSTIN TIME 24.0 SECONDS (21.7-31.4)
[2025-01-16] MEDS ORDERED: Naloxone 0.4 MG/ML SDV IVPUSH PRN (23:00)
[2025-01-16] MEDS ORDERED: ePHEDrine 50 MG/ML SDV IVPUSH PRN (23:00)
[2025-01-16] MEDS ORDERED: diphenhydrAMINE 50 MG/ML SDV IVPUSH PRN (23:00)
[2025-01-17] MEDS: Ketorolac 30 MG/ML SDV IVPUSH SCH ×2 (03:23→19:52)
[2025-01-17] MEDS: Ondansetron 4 MG/2 ML SDV IV PRN (04:28)
[2025-01-17] MEDS: Sodium Chloride 0.9% 10 ML Syringe FLUSH SCH (08:16)
[2025-01-17 16:16] LABS: MEAN PLATELET VOLUME 11.8 fl (9.4-12.3); NRBC ABSOLUTE 0.00 (0.00-0.02); NRBC PERCENT 0.0 % (0.0-0.2); PLATELET COUNT,PLT 247 K/mm3 (150-400); RED BLOOD CELL COUNT 3.25 M/mm3 (4.10-5.30); WHITE BLOOD CELL COUNT,WBC 13.46 K/mm3 (3.9-11.3)
== END 2025-01-18 11:54 | disposition home or self-care (01) | DRG 787 ==
LOC: JD.OBCHECK 17:59 → JD.OB 18:00 → JD.OBCHECK 20:45 → OBSVTOIN 21:45 → JD.OB 21:45 → INTOOBSV 21:45 → JD.OB 23:21
PROVIDERS: ADMIT Obstetrics & Gynecology; ATTEND Obstetrics & Gynecology
PROC: 10D00Z1 Extraction of Products of Conception, Low, Open Approach (ICD-10-PCS; principal; 2025-01-16 20:15)
DX: O34.211 Maternal care for low transverse scar from previous cesarean delivery (principal); O72.1 Other immediate postpartum hemorrhage; O98.32 Other infections with a predominantly sexual mode of transmission complicating childbirth; O99.214 Obesity complicating childbirth; Z3A.38 38 weeks gestation of pregnancy; Z37.0 Single live birth; Z98.890 Other specified postprocedural states; Z87.891 Personal history of nicotine dependence; Z79.899 Other long term (current) drug therapy; Z90.49 Acquired absence of other specified parts of digestive tract
CPT/HCPCS: 01961; 36415; 51702; 59025; 84112; 85027; 85384; 85610; 85730; 86592; 86850; 86900; 86901; A9270-GY; J0456; J0665; J0690; J1885; J2210; J2274; J2405; J2590; J2765; J3490; J7050; J7120; J7121

== ENCOUNTER 2025-01-20 05:00 | Emergency (ER) | payer MEDICAID ==
[2025-01-20] MEDS ORDERED: Sodium Chloride 0.9% 10 ML Syringe FLUSH PRN (05:21)
[2025-01-20 05:58] LABS: LACTIC ACID 1.0 mmol/L (0.4-2.0)
[2025-01-20 06:05] LABS: A/G RATIO 0.6 (1-2); ALANINE AMINOTRANSFERASE,ALT 24.0 U/L (14-59); ASPARTATE AMNIOTRANSFERASE,AST 30.0 U/L (15-37); BILIRUBIN TOTAL 0.2 mg/dL (0.2-1.0); BLOOD UREA NITROGEN,BUN 7.0 mg/dL (7-18); CARBON DIOXIDE,CO2 27.0 mEq/L (21-32); CHLORIDE,CL 105.0 mEq/L (98-107); CREATININE 0.6 mg/dL (0.55-1.02); EST CRCL DRUG DOSING (CG) 97.58 mL/min; ESTIMATED GFR 123.0 mL/min (>60); GLUCOSE RANDOM 87.0 mg/dL (70-99); POTASSIUM,K 3.7 mEq/L (3.5-5.1); PROTEIN TOTAL,TP 6.9 g/dl (6.4-8.2); SODIUM,NA 140.0 mEq/L (136-145); TROPONIN I HIGH SENSITIVITY 4.0 pg/mL (<=51)
[2025-01-20 06:14] LABS: APPEARANCE,URINE CLEAR (Clear); GLUCOSE,URINE NEGATIVE (Negative); OCCULT BLOOD,URINE 1+ (Negative)
[2025-01-20 06:29] LABS: SQUAMOUS EPITHELIAL CELLS,UR 0-5 /hpf (0-5)
[2025-01-20 06:29] LABS: BASOPHILS ABSOLUTE AUTO 0.1 K/mm3 (0.0-0.2); BASOPHILS PERCENT AUTO 0.5 % (0.0-1.0); EOSINOPHILS ABSOLUTE AUTO 0.3 K/mm3 (0.0-0.4); EOSINOPHILS PERCENT AUTO 2.5 % (0.0-6.0); IMMATURE GRAN ABSOLUTE AUTO 0.19 K/mm3 (0.00-0.05); IMMATURE GRAN PERCENT AUTO 1.8 % (0.0-0.4); LYMPHOCYTES ABSOLUTE AUTO 2.8 K/mm3 (1.0-4.8); LYMPHOCYTES PERCENT AUTO 26.8 % (24.0-44.0); MEAN PLATELET VOLUME 11.3 fl (9.4-12.3); MONOCYTES ABSOLUTE AUTO 0.6 K/mm3 (0.0-0.8); MONOCYTES PERCENT AUTO 6.1 % (0.0-8.0); NEUTROPHILS ABSOLUTE AUTO 6.5 K/mm3 (1.8-7.7); NEUTROPHILS PERCENT AUTO 62.3 % (41.0-71.0); NRBC ABSOLUTE 0.00 (0.00-0.02); NRBC PERCENT 0.0 % (0.0-0.2); PLATELET COUNT,PLT 316 K/mm3 (150-400); RED BLOOD CELL COUNT 3.29 M/mm3 (4.10-5.30); WHITE BLOOD CELL COUNT,WBC 10.49 K/mm3 (3.9-11.3)
[2025-01-20] MEDS: Iopamidol 755 Mg/ML 100 ML Bottle IVPUSH ONE (06:58)
[2025-01-20] MEDS: Sodium Chloride 0.9% 10 ML Syringe FLUSH ONE (06:58)
== END 2025-01-20 08:10 | disposition home or self-care (01) ==
LOC: JD.ED 05:00
DX: O99.03 Anemia complicating the puerperium (principal); D64.9 Anemia, unspecified; Z91.018 Allergy to other foods; Z86.16 Personal history of COVID-19
CPT/HCPCS: 36415; 71275; 76856; 80053; 81001; 83605; 83690; 83735; 83880; 84484; 85025; 85379; 87040; 87428; 93005; 96360; 96361; 99285; J7030; Q9967; 93010; 99283